=== PATIENT | male | born 1980 | race Two or more races ===

== ENCOUNTER 2021-01-16 09:55 | Emergency (ER) | payer OTHER ==
[~2021-01-16] VITALS: Ht 177.8 cm; Wt 93.0 kg
[~2021-01-16 09:55] MED LIST: BENADRYL25 MG PO; MEDROL8 MG PO; PEPCID40 MG PO
[2021-01-16] MEDS ORDERED: DICLOFENAC POTA50 MG PO (13:03)
[2021-01-16] MEDS ORDERED: ORPHENADRINE C100 MG PO (13:03)
== END 2021-01-16 13:17 ==
LOC: ER 09:55
DX: S93.491A Sprain of other ligament of right ankle, initial encounter (principal); W16.012A Fall into swimming pool striking water surface causing other injury, initial encounter; Y93.89 Activity, other specified; Y92.89 Other specified places as the place of occurrence of the external cause; Y99.8 Other external cause status